=== PATIENT | male | born 1975 | race Caucasian/White ===

== ENCOUNTER 2017-07-10 01:13 | Emergency (ER) | payer MEDICAID ==
[~2017-07-10] VITALS: Ht 182.9 cm; Wt 80.8 kg
[~2017-07-10 01:13] MED LIST: ANTABUSE500 MG OR; DENIES CURRENT MEDS; KEFLEX500 MG PO; LORTAB 5 OR; MOTRIN800 MG PO; NAPROSYN375 MG PO; PROZAC10 MG OR; RESTORIL15 M1 OR; TOPAMAX100 MG OR; TOPAMAX100 MG PO; TOPIRAMATE50 MG PO; ULTRAM50 M1 OR; ULTRAM50 MG PO; VALPROIC ACD250 M1 PO; XANAX0.25 MG OR
[2017-07-10 01:25] VITALS: BP 137/82
[2017-07-10] MEDS ORDERED: TOPAMAX100 MG PO (01:31)
[2017-07-10] MEDS ORDERED: MOTRIN800 MG PO (01:32)
== END 2017-07-10 02:16 | disposition left against medical advice (07) | DRG 125 ==
LOC: ED 01:13
DX: S01.111A Laceration without foreign body of right eyelid and periocular area, initial encounter (principal); F17.210 Nicotine dependence, cigarettes, uncomplicated; J45.909 Unspecified asthma, uncomplicated; W01.198A Fall on same level from slipping, tripping and stumbling with subsequent striking against other object, initial encounter; Y92.002 Bathroom of unspecified non-institutional (private) residence as the place of occurrence of the external cause; Z87.820 Personal history of traumatic brain injury; Z91.19 Patient's noncompliance with other medical treatment and regimen

== ENCOUNTER → 2017-11-13 | Outpatient (REF) | payer MEDICAID ==
[~2017-11-13] VITALS: Ht 182.9 cm; Wt 77.1 kg
[~2017-11-13] MED LIST changes: +NAPROXEN500 MG PO; +TOPAMAX100 M1 PO; +VITAMIN B PO
[2017-11-13 16:31] VITALS: BP 138/84
== END | disposition home or self-care (01) | DRG 951 ==
LOC: PO 10:22 → ORM 11:00
DX: Z01.818 Encounter for other preprocedural examination (principal); M75.52 Bursitis of left shoulder; M25.512 Pain in left shoulder; G40.909 Epilepsy, unspecified, not intractable, without status epilepticus; Z98.890 Other specified postprocedural states; Z72.9 Problem related to lifestyle, unspecified

== ENCOUNTER 2020-12-06 17:34 | Emergency (ER) | payer MEDICARE, MEDICAID ==
[~2020-12-06] VITALS: Ht 182.9 cm; Wt 79.5 kg
[2020-12-06] MEDS ORDERED: NAPROXEN500 MG PO (20:43)
[2020-12-06 20:50] VITALS: BP 148/99
== END 2020-12-06 20:50 | disposition home or self-care (01) ==
LOC: ED 17:34
DX: S93.601A Unspecified sprain of right foot, initial encounter (principal); J45.909 Unspecified asthma, uncomplicated; W17.89XA Other fall from one level to another, initial encounter; Y92.008 Other place in unspecified non-institutional (private) residence as the place of occurrence of the external cause; Z87.820 Personal history of traumatic brain injury